=== PATIENT | female | born 1995 | race Two or more races ===

== ENCOUNTER 2021-02-28 19:46 | Emergency (ER) | payer MEDICAID ==
[~2021-02-28] VITALS: Ht 147.3 cm; Wt 95.3 kg
[2021-02-28 20:59] LABS: Urine Bacteria NONE SEEN /hpf (None Seen); Urine Blood 3+ /uL (Negative); Urine Mucus FEW (None Seen); Urine Specific Gravity 1.028 (1.001-1.035); Urine WBC 67 /hpf (0 - 5)
[2021-02-28 22:06] VITALS: BP 131/76
== END 2021-02-28 22:10 | disposition home or self-care (01) ==
LOC: ER 19:46
DX: N94.6 Dysmenorrhea, unspecified (principal)
CPT/HCPCS: 81001; 81025